=== PATIENT | female | born 1960 | race Caucasian/White ===

== ENCOUNTER 2018-01-10 07:26 | Emergency (ER) | payer OTHER ==
[~2018-01-10] VITALS: Ht 157.5 cm; Wt 53.9 kg
[~2018-01-10 07:26] MED LIST: ADVAIR 100-501 EACH IH; AMBIEN10 M1 PO; AMBIEN10 MG PO; ASPIRIN E.C.81 M1 PO; Advair HFA 115/21 IH; Ambien PO; BACTRIM,SEPT1 TABLET PO; CARBIDOPA-LEVO1 EAC3 PO; CARDIZEM CD180 MG PO; CARDIZEM30 MG PO; CARDIZEM60 MG PO; CATAPRES0.2 MG PO; CLONIDINE HCL0.2 MG PO; COBAL-10001000 MCG/2 IM; COBAL-10001000 MCG/2 PO; Cardizem CD,Cartia X PO; Codeine Sulfate PO; DEPAKOTE ER (E500 M1 PO; DEPAKOTE500 MG PO; DESYREL100 MG PO; DULCOLAX5 MG PO; Desyrel PO; EFFEXOR XR150 MG PO; ESCITALOPRAM OX20 MG PO; ESGIC 50-325-41 EACH PO; FEOSOL325 MG PO; FIORICET WI1 CAPSULE PO; FIORINAL WITH1 EACH PO; Fioricet,Esgic,Repan PO; INTRINSI B12-F1 EACH PO; KLONOPIN2 MG PO; LABETALOL HCL100 MG PO; LOPRESSOR25 MG PO; LUNESTA3 MG PO; Levaquin PO; Lopressor PO; METHADONE10 MG PO; MIRTAZAPINE15 MG PO; NABUMETONE500 M1 PO; NORTRIPTYLINE H25 MG PO; NORTRIPTYLINE H75 MG PO; NORVASC10 MG PO; Normodyne,Trandate PO; OxyCODONE PO; PHENERGAN PR; PHENERGAN25 MG PR; POTASSIUM; PROTONIX40 MG PO; PROZAC; PROZAC20 M1 PO; PROZAC40 MG PO; PROzac PO; Prozac PO; REMERON30 M1 PO; Remeron PO; SEROQUEL300 MG PO; SEROQUEL50 MG PO; SEROquel PO; SOMA350 MG PO; SPIRIVA1 INHALATI IH; THERAGRAN1 TABLET PO; THERAPEUTIC-M1 EAC3 PO; TOPAMAX100 MG PO; TOPAMAX50 MG PO; TOPROL XL100 MG PO; TRAZODONE HCL50 MG PO; Tylenol Regular Stre PO; VIIBRYD40 MG PO; VITAMIN B 12; VITAMIN B12-FO1 EACH PO; VITAMIN D1000 INTUN PO; Vitamin B-12 PO; WELLBUTRIN SR150 MG PO; ZESTRIL,PRINIVI10 M1 PO; ZITHROMAX500 MG PO; ZOCOR20 MG PO; ZYPREXA; ZYPREXA10 MG PO; ZYVOX600 MG PO; Zocor PO; Zoloft PO; [UNRECOGNIZED DRUG - OTHER]; [UNRECOGNIZED DRUG - OTHER] PO; [UNRECOGNIZED DRUG - OTHER] PO; [UNRECOGNIZED DRUG - OTHER] PO
[2018-01-10 12:11] VITALS: BP 138/73
== END 2018-01-10 12:35 | disposition home or self-care (01) ==
LOC: EME 07:26
DX: G43.909 Migraine, unspecified, not intractable, without status migrainosus (principal); I10 Essential (primary) hypertension; R56.9 Unspecified convulsions; F32.9 Major depressive disorder, single episode, unspecified; F17.200 Nicotine dependence, unspecified, uncomplicated; Z79.891 Long term (current) use of opiate analgesic; Z86.74 Personal history of sudden cardiac arrest; Z90.710 Acquired absence of both cervix and uterus
CPT/HCPCS: 99281; 99285; J0595; J1100; J1200; J2405; J7030; J7050

== ENCOUNTER 2018-01-13 17:58 | Emergency (ER) | payer OTHER ==
[~2018-01-13] VITALS: Ht 157.5 cm; Wt 55.4 kg
[2018-01-13 21:21] LABS: HEMOGLOBIN 10.1 G/DL (11.9-15.5); MCH 30.9 PG (29.0-34.0); MCHC 33.7 G/DL (30.0-36.0); MCV 91.7 FL (83-99); PLATELET COUNT 226 K/uL (156-360); RBC DIS.WIDTH-CV 14.6 % (11.8-14.6); RBC DIS.WIDTH-SD 49.4 % (39-53); RED BLOOD COUNT 3.27 M/uL (3.80-5.20)
[2018-01-13 21:30] LABS: CHLORIDE 108 mEq/L (99-109); POTASSIUM 3.7 mEq/L (3.7-5.4); SODIUM 139 mEq/L (136-147)
[2018-01-13 21:31] LABS: GLUCOSE 87 mg/dL (70-99)
[2018-01-13 21:35] LABS: CREATININE 1.1 mg/dL (0.6-1.3); GFR ESTIMATE (CALCULATED) 55 mL/min/
[2018-01-13 21:36] LABS: UREA NITROGEN (BUN) 19 mg/dL (9-23)
[2018-01-13 22:36] VITALS: BP 129/80
== END 2018-01-13 22:44 | disposition home or self-care (01) ==
LOC: EME 17:58
PROVIDERS: Nurse Practitioner Family
DX: G43.909 Migraine, unspecified, not intractable, without status migrainosus (principal); I10 Essential (primary) hypertension; F32.9 Major depressive disorder, single episode, unspecified; F17.200 Nicotine dependence, unspecified, uncomplicated; Z79.891 Long term (current) use of opiate analgesic; Z86.69 Personal history of other diseases of the nervous system and sense organs; Z87.19 Personal history of other diseases of the digestive system; Z86.74 Personal history of sudden cardiac arrest; Z90.710 Acquired absence of both cervix and uterus
CPT/HCPCS: 80048; 85027; 99281; 99285; J1200; J1885; J2060; J2405; J7030

== ENCOUNTER 2018-02-21 16:23 | Emergency (ER) | payer OTHER ==
[~2018-02-21] VITALS: Ht 157.5 cm; Wt 54.6 kg
[2018-02-21 20:22] VITALS: BP 138/74
== END 2018-02-21 20:23 | disposition home or self-care (01) ==
LOC: EME 16:23
DX: G43.909 Migraine, unspecified, not intractable, without status migrainosus (principal); I10 Essential (primary) hypertension; R56.9 Unspecified convulsions; F32.9 Major depressive disorder, single episode, unspecified; F17.200 Nicotine dependence, unspecified, uncomplicated; Z90.710 Acquired absence of both cervix and uterus; Z86.74 Personal history of sudden cardiac arrest
CPT/HCPCS: 99281; 99284; J0595; J1200; J2405; J7030